=== PATIENT | male | born 1995 | race Caucasian/White ===

== ENCOUNTER 2017-06-02 01:11 | Emergency (ER) | payer MEDICAID, OTHER ==
[~2017-06-02] VITALS: Ht 182.9 cm; Wt 73.0 kg
[2017-06-02] MEDS ORDERED: LIDOCAINE 1%-EPI 1:100K, 20ML INFIL ONE (01:30)
[2017-06-02] MEDS ORDERED: LIDOCAINE 1%, 20ML ONE (02:02)
[2017-06-02] MEDS ORDERED: ONDANSETRON ODT 8 MG PO ONE (02:30)
[2017-06-02] MEDS ORDERED: IBUPROFEN 200 MG TABLET PO ONE (02:30)
[2017-06-02] MEDS ORDERED: BACITRACIN ZINC OINT 500U/GM, 0.9 GM ONE (03:10)
[2017-06-02 03:21] VITALS: BP 126/71
== END 2017-06-02 03:23 | disposition home or self-care (01) ==
LOC: ED 03:05
DX: S01.81XA Laceration without foreign body of other part of head, initial encounter (principal); S06.0X1A Concussion with loss of consciousness of 30 minutes or less, initial encounter; F10.120 Alcohol abuse with intoxication, uncomplicated; F17.210 Nicotine dependence, cigarettes, uncomplicated; F19.10 Other psychoactive substance abuse, uncomplicated; Y04.0XXA Assault by unarmed brawl or fight, initial encounter; Y93.89 Activity, other specified; Y92.488 Other paved roadways as the place of occurrence of the external cause; Y99.8 Other external cause status
CPT/HCPCS: 13132; 70450; 70486; 72125